=== PATIENT | female | born 1955 | race African-American/Black ===

== ENCOUNTER 2018-05-27 12:50 | Emergency (ER) | payer OTHER ==
[~2018-05-27] VITALS: Ht 165.1 cm; Wt 78.5 kg
[2018-05-27] MEDS ORDERED: xarelto (13:08)
[2018-05-27] MEDS ORDERED: omeprazole (13:08)
[2018-05-27] MEDS ORDERED: BECL10.6 IH (13:08)
[2018-05-27] MEDS ORDERED: albuterol (13:08)
[2018-05-27] MEDS ORDERED: pravastatin (13:08)
[2018-05-27] MEDS ORDERED: verapamil (13:08)
[2018-05-27] MEDS ORDERED: MAGNESIUM/ALUMINUM HYDROXIDE/SIMETHICONE 30ML UDC PO ONE (18:15)
[2018-05-27] MEDS ORDERED: VISCOUS LIDOCAINE 2% 15 ML UDC PO ONE (18:15)
[2018-05-27 19:20] LABS: CHLORIDE 107 mEq/L (98-107)
[2018-05-27 19:23] LABS: BASOPHILS % 0.5 % (0.0-2.0); EOSINOPHILS % 1.9 % (0.0-5.0); HEMATOCRIT. 40.7 % (36.0-48.0); HEMOGLOBIN. 13.1 g/dL (12.0-16.0); LYMPHOCYTES % 42.6 % (20.0-50.0); MEAN CORPUSCULAR HEMOGLOBIN 27.2 pg (28.0-32.0); MEAN CORPUSCULAR VOLUME 84.5 fL (81.0-99.0); MEAN PLATELET VOLUME 8.6 fl (7.4-10.4); MONOCYTES % 10.5 % (2.0-8.0); NEUTROPHILS % 44.5 % (40.0-76.0); PLATELET 225 x1000/uL (130-400); RED BLOOD CELL COUNT 4.82 mill/uL (4.2-5.4); RED CELL DISTRIBUTION WIDTH 14.6 % (11.6-14.6)
[2018-05-27 20:26] VITALS: BP 129/78
== END 2018-05-27 20:27 | disposition home or self-care (01) ==
LOC: ER 12:50
DX: R07.89 Other chest pain (principal); R06.02 Shortness of breath; R42 Dizziness and giddiness; K21.9 Gastro-esophageal reflux disease without esophagitis; J45.909 Unspecified asthma, uncomplicated; I10 Essential (primary) hypertension; Z88.6 Allergy status to analgesic agent; Z91.041 Radiographic dye allergy status; Z79.899 Other long term (current) drug therapy; Z98.890 Other specified postprocedural states
CPT/HCPCS: 36415; 71045; 83880; 84484; 93005; 99284